=== PATIENT | female | born 1940 | race Caucasian/White ===

== ENCOUNTER 2017-09-19 05:03 | Emergency (ER) | payer MEDICARE, OTHER ==
[2017-09-19 06:25] LABS: BASO % 0.2 % (0.0-1.0); EOS # 0.1 10^3/uL (0.0-0.50); EOS % 1.1 % (0.0-3.0); HEMATOCRIT 29.8 % (36.0-47.0); HEMOGLOBIN 9.7 g/dl (12.0-15.5); IMMATURE GRANULOCYTE % 0.4 % (0-3.0); LYMPH # 1.2 10^3/uL (1.5-4.5); LYMPH % 12.5 % (24.0-44.0); MEAN CORPUSCULAR HEMOGLOBIN 29.7 pg (27.0-33.0); MEAN CORPUSCULAR HGB CONC 32.6 g/dl (32.0-36.5); MEAN CORPUSCULAR VOLUME 91.1 fl (80.0-96.0); MONO # 0.5 10^3/uL (0.0-0.8); MONO % 4.9 % (0.0-5.0); NEUTROPHILS # 7.6 10^3/uL (1.8-7.7); NEUTROPHILS % 80.9 % (36.0-66.0); PLATELET COUNT, AUTOMATED 217 10^3/uL (150-450); RED BLOOD COUNT 3.27 10^6/uL (4.00-5.40); RED CELL DISTRIBUTION WIDTH 13.9 % (11.5-14.5); WHITE BLOOD COUNT 9.4 10^3/uL (4.0-10.0)
[2017-09-19] MEDS: traMADol 50 MG TAB PO (06:25)
[2017-09-19 06:51] LABS: ANION GAP 7 MEQ/L (8-16); BLOOD UREA NITROGEN 24 MG/DL (7-18); CARBON DIOXIDE LEVEL 27 MEQ/L (21-32); CHLORIDE LEVEL 113 MEQ/L (98-107); CK-MB VALUE MASS 1.2 NG/ML (<3.6); CPK CREATINE PHOSPHOKINASE 110 U/L (26-192); CREATININE FOR GFR 1.22 MG/DL (0.55-1.30); GLOMERULAR FILTRATION RATE 45.7 (>39); GLUCOSE, FASTING 123 MG/DL (70-100); MB/CK RELATIVE INDEX 1.09 (< OR =4); SODIUM LEVEL 147 MEQ/L (136-145); TROPONIN I < 0.02 NG/ML (< 0.10)
[2017-09-19] MEDS: hydroCHLOROthiazide 25 MG TAB PO (06:57)
[2017-09-19] MEDS: CARVedilol 12.5 MG TAB PO (06:58)
[2017-09-19] MEDS: QUINAPRIL 20 MG TAB PO (07:34)
[2017-09-19] MEDS ORDERED: QUINAPRIL 20 MG TAB PO (09:00)
== END 2017-09-19 07:46 | disposition home or self-care (01) ==
LOC: M ED 05:03
DX: I10 Essential (primary) hypertension (principal); M54.9 Dorsalgia, unspecified; I25.10 Atherosclerotic heart disease of native coronary artery without angina pectoris; M79.7 Fibromyalgia; Z79.891 Long term (current) use of opiate analgesic; Z79.899 Other long term (current) drug therapy; Z88.8 Allergy status to other drugs, medicaments and biological substances
CPT/HCPCS: 71046

== ENCOUNTER → 2017-12-07 | Outpatient (CLI) | payer MEDICARE, OTHER | LOC: M WUC 11:11 | DX: M79.652 Pain in left thigh (principal) | CPT/HCPCS: 73552 ==

== ENCOUNTER → 2019-08-17 | Outpatient (CLI) | payer MEDICARE, OTHER ==
[~2019-08-17] MED LIST: ATOR40TA75 PO; CARV25TA PO; CLOP75TA2 PO; GLIM4TAB5 PO; HYDR200T3 PO; HYDR25TAB PO; QUIN20TA48 PO; RANI1SYP PO; TRAM50TA2 PO; VICT18IN SC
== END ==
LOC: M LABSMTC 13:58
PROVIDERS: ATTEND Family Medicine
DX: Z03.818 Encounter for observation for suspected exposure to other biological agents ruled out (principal)

== ENCOUNTER 2020-07-13 11:22 | Emergency (ER) | payer MEDICARE, OTHER ==
[~2020-07-13] VITALS: Ht 165.1 cm; Wt 95.5 kg
[~2020-07-13 11:22] MED LIST changes: +HYDR-3490 PO; -HYDR25TAB PO
--- NOTE | 2020-07-13 11:57 | REP ---
INDICATION: fall/thinners. COMPARISON: None. TECHNIQUE: Axial CT images with multiplanar reformations. FINDINGS: No acute bleed or acute large vessel territorial infarct. Ventricles, cisterns and sulci are within normal limits. No mass effect or midline shift. No abnormal fluid collections. Scattered ill-defined hypodensities seen throughout the white matter is most consistent with sequelae of chronic microvascular ischemic disease. Paranasal sinuses and mastoid air cells are clear. IMPRESSION: No acute findings. <Electronically signed by Beltran Puckett > 07/13/20 [id number]
--- NOTE | 2020-07-13 12:00 | REP ---
INDICATION: fall/thinners. COMPARISON: None. TECHNIQUE: Axial CT images with multiplanar reformations. FINDINGS: No fracture. Soft tissue swelling seen over the left forehead. Paranasal sinuses and mastoid air cells are clear. Nasal bones intact. IMPRESSION: No fracture. <Electronically signed by Beltran Puckett > 07/13/20 [id number]
--- NOTE | 2020-07-13 12:17 | REP ---
INDICATION: fall/thinners. COMPARISON: None. TECHNIQUE: Axial CT images with multiplanar reformations. FINDINGS: On the sagittal imaging, there is advanced degenerative change with anterior osteophytic spurring. There is an angulation in the Don toilet which raises concern for nondisplaced fracture. On the sagittal imaging, no significant canal stenosis. On the review of axial images, At C2-3 through C4-5 no significant canal or foraminal narrowing At C5-6 disc-osteophyte complex with at least moderate canal stenosis and [id number] bilateral foraminal narrowing. At C6-7 disc-osteophyte complex with at least moderate canal stenosis and [id number] bilateral foraminal narrowing. At C7-T1 no significant canal or foraminal narrowing. Prevertebral soft tissues within normal limits. IMPRESSION: 1. No definite fracture or malalignment. There is irregularity of the odontoid and angulation of the more superior aspect of the odontoid which raises concern for nondisplaced fracture (image 31 series 308). Clinical correlation suggested. 2. 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 <Electronically signed by Beltran Puckett > 07/13/20 [id number]
[2020-07-13] MEDS ORDERED: AMLO1TAB24 (12:30)
[2020-07-13] MEDS ORDERED: DULO1CAP5 (12:39)
[2020-07-13] MEDS ORDERED: LOSA50TA88 (12:39)
[2020-07-13] MEDS ORDERED: LABETALOL 100MG/20ML VIAL IV STA (13:01)
--- NOTE | 2020-07-13 13:33 | REP ---
INDICATION: thin cuts odontoid through c2 question fracture. COMPARISON: None. TECHNIQUE: Axial CT images with multiplanar reformations are focused on the odontoid. FINDINGS: Cystic change of the odontoid. The more superior aspect of the odontoid is slightly sclerotic. On the sagittal images there is irregularity of the odontoid cortex however on the coronal images no evidence of fracture. On the axial images, no evidence of fracture. There is however a fracture of the ring of C1 on the right, which is minimally displaced, see image 46 series 309. 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 Minimally displaced fracture of the ring of C1 on the right, image 46 series 309. Findings discussed with Ubaldo Juárez at the time of interpretation. <Electronically signed by Beltran Puckett > 07/13/20 [id number]
[2020-07-13 13:56] VITALS: BP 210/100
[2020-07-13 14:09] LABS: HEMATOCRIT 34.5 % (36.0-47.0); HEMOGLOBIN 10.5 g/dl (12.0-15.5); MEAN CORPUSCULAR HEMOGLOBIN 28.2 pg (27.0-33.0); MEAN CORPUSCULAR HGB CONC 30.4 g/dl (32.0-36.5); MEAN CORPUSCULAR VOLUME 92.7 fl (80.0-96.0); PLATELET COUNT, AUTOMATED 283 10^3/uL (150-450); RED BLOOD COUNT 3.72 10^6/uL (4.00-5.40); WHITE BLOOD COUNT 12.5 10^3/uL (4.0-10.0)
[2020-07-13 14:23] LABS: INR 0.98; PROTHROMBIN TIME 13.2 SECONDS (12.5-14.3)
[2020-07-13 14:32] LABS: CALCIUM LEVEL 9.2 MG/DL (8.8-10.2); CREATININE FOR GFR 0.99 MG/DL (0.55-1.30); GLOMERULAR FILTRATION RATE 57.8 (>39); POTASSIUM SERUM 4.7 MEQ/L (3.5-5.1)
[2020-07-13 15:14] LABS: RSV AMPLIFICATION NEGATIVE (NEGATIVE)
[2020-07-13 15:46] VITALS: BP 190/80
== END 2020-07-13 16:07 | disposition short-term general hospital (02) ==
LOC: M ED 11:22
DX: S12.000A Unspecified displaced fracture of first cervical vertebra, initial encounter for closed fracture (principal); S12.100A Unspecified displaced fracture of second cervical vertebra, initial encounter for closed fracture; W01.10XA Fall on same level from slipping, tripping and stumbling with subsequent striking against unspecified object, initial encounter; Y92.410 Unspecified street and highway as the place of occurrence of the external cause; Y93.9 Activity, unspecified; Y99.9 Unspecified external cause status; M25.78 Osteophyte, vertebrae; M48.02 Spinal stenosis, cervical region; I51.9 Heart disease, unspecified; I10 Essential (primary) hypertension; Z79.899 Other long term (current) drug therapy; Z88.8 Allergy status to other drugs, medicaments and biological substances

== ENCOUNTER → 2020-10-04 | Outpatient (REF) | payer MEDICARE, OTHER ==
[~2020-10-04] MED LIST changes: +AMLO1TAB24; +DULO1CAP5; +LOSA50TA88
== END ==
LOC: EEVIPCON 15:52 → M WUC 15:52
PROVIDERS: ATTEND Nurse Practitioner Family
DX: R30.0 Dysuria (principal)

== ENCOUNTER → 2021-09-28 | Outpatient (CLI) | payer MEDICARE, OTHER ==
[~2021-09-28] MED LIST changes: +LOSA50TA28; -LOSA50TA88
== END ==
LOC: M WHC 15:12
DX: Z12.31 Encounter for screening mammogram for malignant neoplasm of breast (principal); Z80.3 Family history of malignant neoplasm of breast; Z80.41 Family history of malignant neoplasm of ovary

== ENCOUNTER → 2022-09-20 | Outpatient (CLI) | payer MEDICARE, OTHER ==
[~2022-09-20] MED LIST changes: -HYDR200T3 PO; +HYDR200T46 PO
== END ==
LOC: M WUC 13:38
PROVIDERS: ATTEND Nurse Practitioner Family
DX: M79.675 Pain in left toe(s) (principal); M10.00 Idiopathic gout, unspecified site

== ENCOUNTER 2023-08-05 14:45 | Inpatient (IN) | payer MEDICARE, OTHER ==
[~2023-08-05] VITALS: Ht 165.1 cm; Wt 102.5 kg
[2023-08-05] MEDS ORDERED: HYDR-3490 (14:54)
[2023-08-05] MEDS ORDERED: POTA1TAB23 (14:54)
[2023-08-05] MEDS ORDERED: HYDR100T (14:54)
[2023-08-05 16:04] LABS: CK-MB VALUE MASS 1.5 NG/ML (<3.6)
[2023-08-05 16:06] LABS: MB/CK RELATIVE INDEX 1.97 (< OR =4)
[2023-08-05 16:07] LABS: BILIRUBIN,DIRECT 0.1 MG/DL (<0.4); BILIRUBIN,TOTAL 0.3 MG/DL (0.3-1.2); CALCIUM LEVEL 9.2 MG/DL (8.3-10.6); CREATININE FOR GFR 1.05 MG/DL (0.55-1.30); GLOMERULAR FILTRATION RATE 53.5 (>32); POTASSIUM SERUM 4.9 MMOL/L (3.5-5.1); TOTAL PROTEIN 6.4 G/DL (5.7-8.2)
[2023-08-05 16:08] LABS: THYROID STIMULATING HORMONE 2.874 uIU/ML (0.55-4.78)
[2023-08-05 16:31] LABS: VENOUS BASE EXCESS -1.9 (-2.0-2.0); VENOUS HCO3 24.4 MMOL/L (23.0-27.0); VENOUS O2 SATURATION 88.6 % (60.0-80.0); VENOUS PARTIAL PRESSURE O2 60.1 mmHg (30.0-50.0); VENOUS PH 7.315 UNITS (7.330-7.430); VENOUS STANDARD HCO3 22.7 MMOL/L; VENOUS TOTAL CO2 25.9 MMOL/L (24.0-28.0)
[2023-08-05 16:33] LABS: BASO # 0.1 10^3/uL (0.0-0.2); BASO % 0.5 % (0.0-1.0); EOS # 0.2 10^3/uL (0.0-0.5); EOS % 1.7 % (0.0-3.0); HEMATOCRIT 27.8 % (36.0-47.0); HEMOGLOBIN 8.3 g/dl (12.0-15.5); LYMPH # 0.7 10^3/uL (1.5-5.0); LYMPH % 7.1 % (24.0-44.0); MEAN CORPUSCULAR HEMOGLOBIN 28.2 pg (27.0-33.0); MEAN CORPUSCULAR HGB CONC 29.9 g/dl (32.0-36.5); MEAN CORPUSCULAR VOLUME 94.6 fl (80.0-96.0); MONO # 0.9 10^3/uL (0.0-0.8); MONO % 8.8 % (2.0-8.0); NEUTROPHILS # 8.1 10^3/uL (1.5-8.5); NEUTROPHILS % 81.5 % (36.0-66.0); PLATELET COUNT, AUTOMATED 289 10^3/uL (150-450); RED BLOOD COUNT 2.94 10^6/uL (4.00-5.40); WHITE BLOOD COUNT 9.9 10^3/uL (4.0-10.0)
[2023-08-05] MEDS ORDERED: ISOVUE-370 76% 100ML VIAL As Ordered ONE (18:03)
[2023-08-05 18:48] LABS: CK-MB VALUE MASS 1.6 NG/ML (<3.6)
[2023-08-05 18:50] LABS: MB/CK RELATIVE INDEX 2.05 (< OR =4)
[2023-08-05 19:28] VITALS: O2SAT 94
[2023-08-05 20:17] LABS: PROCALCITONIN 0.04 ng/ml
[2023-08-05] MEDS: HYDROXYCHLOROQUINE 200 MG TAB PO SCH (21:00)
[2023-08-05] MEDS: INSULIN LISPRO (NovoLOG) PER UNIT SC SCH (21:00)
[2023-08-05] MEDS: cefTRIAXone SOD 1 GM in D5W MINI-BAG PLUS 50 ML IV ONE (21:09)
[2023-08-05] MEDS ORDERED: LOSA100T46 PO (21:35)
[2023-08-05] MEDS ORDERED: HYDR-3490 PO (21:35)
[2023-08-05] MEDS ORDERED: HYDR100T26 PO (21:35)
[2023-08-05] MEDS ORDERED: POTA-150 PO (21:35)
[2023-08-05] MEDS ORDERED: AMLO1TAB25 PO (21:35)
[2023-08-05] MEDS ORDERED: DULO30CA9 PO (21:37)
[2023-08-05] MEDS ORDERED: ACET650T61 PO ×2 (21:37)
[2023-08-05] MEDS ORDERED: HOME MED LIST COMPLETE! XX SCH (21:40)
[2023-08-05] MEDS: DOXYCYCLINE HYCLATE 100 MG in D5W MINI-BAG PLUS 100 ML IV ONE (21:46)
[2023-08-05] MEDS ORDERED: GLUCAGON INJ 1MG VIAL SC PRN (22:15)
[2023-08-05] MEDS ORDERED: DEXTROSE 50% 50ML SYRINGE IV PRN (22:15)
[2023-08-05] MEDS ORDERED: GLUCOSE 4 GM CHEW PO PRN (22:15)
[2023-08-05] MEDS: LOSARTAN 50MG TABLET PO SCH (22:34)
[2023-08-05] MEDS: CARVedilol 12.5 MG TAB PO SCH (22:35)
[2023-08-05 23:06] VITALS: BP 179/74; TEMP 97; O2SAT 91
[2023-08-05] MEDS: FUROSEMIDE 20MG/2ML VIAL IV ONE (23:30)
[2023-08-06] VITALS (7 sets, daily range): BP systolic 131–178; BP diastolic 54–74; TEMP 97–98; O2SAT 94–96
[2023-08-06] MEDS: ALBUTEROL SULFATE 2.5MG/0.5ML INH NEB SOLN INH SCH (01:29)
[2023-08-06 05:29] LABS: HEMATOCRIT 26.1 % (36.0-47.0); HEMOGLOBIN 7.9 g/dl (12.0-15.5); MEAN CORPUSCULAR HEMOGLOBIN 28.5 pg (27.0-33.0); MEAN CORPUSCULAR HGB CONC 30.3 g/dl (32.0-36.5); MEAN CORPUSCULAR VOLUME 94.2 fl (80.0-96.0); PLATELET COUNT, AUTOMATED 270 10^3/uL (150-450); RED BLOOD COUNT 2.77 10^6/uL (4.00-5.40); WHITE BLOOD COUNT 9.5 10^3/uL (4.0-10.0)
[2023-08-06] MEDS: HEPARIN SOD (PORCINE) 5000UNITS/ML 1ML VIAL/SYRINGE SC SCH (05:41)
[2023-08-06 05:52] LABS: CALCIUM LEVEL 8.9 MG/DL (8.3-10.6); CREATININE FOR GFR 1.12 MG/DL (0.55-1.30); GLOMERULAR FILTRATION RATE 49.7 (>32); POTASSIUM SERUM 4.6 MMOL/L (3.5-5.1)
[2023-08-06 08:08] LABS: C REACTIVE PROTEIN QUANTITATIV 3.9 MG/DL (<1.0)
[2023-08-06] MEDS: ATORVASTATIN 20 MG TAB PO SCH (08:17)
[2023-08-06] MEDS: DULoxetine 30MG CAPSULE (CYMBALTA) PO SCH (08:18)
[2023-08-06] MEDS: INSULIN LISPRO (NovoLOG) PER UNIT SC SCH (08:18)
[2023-08-06] MEDS: DOXYCYCLINE HYCLATE 100MG TABLET PO SCH (08:18)
[2023-08-06] MEDS: CLOPIDOGREL 75 MG TAB PO SCH (08:18)
[2023-08-06] MEDS: guaiFENesin 200 MG TAB PO SCH (14:53)
[2023-08-06 16:10] LABS: ERYTHROCYTE SEDIMENTATION RATE 55 mm/hr (0-30)
[2023-08-06] MEDS: cefTRIAXone SOD 1 GM in D5W MINI-BAG PLUS 50 ML IV SCH (20:20)
[2023-08-06] MEDS: ACETAMINOPHEN TAB 650MG DOSE (2X325MG) PO PRN (20:21)
[2023-08-07] VITALS (7 sets, daily range): BP systolic 128–149; BP diastolic 58–78; TEMP 97.4–98; O2SAT 80–97
[2023-08-07 05:13] LABS: BASO % 0.4 % (0.0-1.0); EOS # 0.2 10^3/uL (0.0-0.5); EOS % 2.5 % (0.0-3.0); HEMATOCRIT 24.4 % (36.0-47.0); HEMOGLOBIN 7.6 g/dl (12.0-15.5); LYMPH # 1.5 10^3/uL (1.5-5.0); LYMPH % 18.6 % (24.0-44.0); MEAN CORPUSCULAR HEMOGLOBIN 29.1 pg (27.0-33.0); MEAN CORPUSCULAR HGB CONC 31.1 g/dl (32.0-36.5); MEAN CORPUSCULAR VOLUME 93.5 fl (80.0-96.0); MONO # 1.1 10^3/uL (0.0-0.8); MONO % 13.1 % (2.0-8.0); NEUTROPHILS # 5.3 10^3/uL (1.5-8.5); NEUTROPHILS % 64.8 % (36.0-66.0); PLATELET COUNT, AUTOMATED 258 10^3/uL (150-450); RED BLOOD COUNT 2.61 10^6/uL (4.00-5.40); WHITE BLOOD COUNT 8.1 10^3/uL (4.0-10.0)
[2023-08-07 05:27] LABS: C REACTIVE PROTEIN QUANTITATIV 3.3 MG/DL (<1.0)
[2023-08-07 05:28] LABS: CALCIUM LEVEL 8.3 MG/DL (8.3-10.6); CREATININE FOR GFR 1.38 MG/DL (0.55-1.30); GLOMERULAR FILTRATION RATE 39.1 (>32); MAGNESIUM LEVEL 1.9 MG/DL (1.8-2.4); POTASSIUM SERUM 4.4 MMOL/L (3.5-5.1)
[2023-08-07] MEDS: NS 1,000 ML IV SCH (08:29)
[2023-08-07] MEDS: FLUCONAZOLE 100 MG TAB PO SCH (12:57)
[2023-08-07 14:52] LABS: CALCIUM LEVEL 8.9 MG/DL (8.3-10.6); CREATININE FOR GFR 1.22 MG/DL (0.55-1.30); POTASSIUM SERUM 4.7 MMOL/L (3.5-5.1)
[2023-08-08 00:25] VITALS: BP 156/67; TEMP 97.3; O2SAT 93
[2023-08-08 04:03] VITALS: BP 151/63; TEMP 97.3; O2SAT 91; O2SAT 94
[2023-08-08 06:26] LABS: BASO # 0.1 10^3/uL (0.0-0.2); BASO % 0.5 % (0.0-1.0); EOS # 0.3 10^3/uL (0.0-0.5); EOS % 2.7 % (0.0-3.0); HEMATOCRIT 25.1 % (36.0-47.0); HEMOGLOBIN 7.7 g/dl (12.0-15.5); LYMPH # 1.3 10^3/uL (1.5-5.0); LYMPH % 13.1 % (24.0-44.0); MEAN CORPUSCULAR HEMOGLOBIN 28.4 pg (27.0-33.0); MEAN CORPUSCULAR HGB CONC 30.7 g/dl (32.0-36.5); MEAN CORPUSCULAR VOLUME 92.6 fl (80.0-96.0); MONO % 9.9 % (2.0-8.0); NEUTROPHILS # 7.3 10^3/uL (1.5-8.5); NEUTROPHILS % 73.4 % (36.0-66.0); PLATELET COUNT, AUTOMATED 256 10^3/uL (150-450); RED BLOOD COUNT 2.71 10^6/uL (4.00-5.40); WHITE BLOOD COUNT 9.9 10^3/uL (4.0-10.0)
[2023-08-08 06:58] LABS: C REACTIVE PROTEIN QUANTITATIV 2.5 MG/DL (<1.0)
[2023-08-08 07:00] LABS: CALCIUM LEVEL 8.6 MG/DL (8.3-10.6); CREATININE FOR GFR 1.07 MG/DL (0.55-1.30); GLOMERULAR FILTRATION RATE 52.4 (>32); MAGNESIUM LEVEL 1.8 MG/DL (1.8-2.4); POTASSIUM SERUM 4.6 MMOL/L (3.5-5.1)
[2023-08-08 07:39] VITALS: BP 154/64; TEMP 97.6; O2SAT 95
[2023-08-08] MEDS: ASPIRIN 81MG ENTERIC TABLET PO SCH (08:31)
[2023-08-08 08:44] VITALS: BP 165/80
[2023-08-08] MEDS: FUROSEMIDE 40 MG TAB PO SCH (08:44)
[2023-08-08] MEDS: LOSARTAN 50MG TABLET PO SCH (08:44)
[2023-08-08] MEDS ORDERED: FLUC100T3 PO (10:07)
[2023-08-08] MEDS ORDERED: ASPI81TAEC PO (10:14)
[2023-08-08] MEDS ORDERED: CEFD1CAP9 PO (10:14)
[2023-08-08] MEDS ORDERED: DOXY100T PO (10:14)
[2023-08-08] MEDS ORDERED: FURO40TA2 PO (10:14)
[2023-08-08] MEDS: CEFDINIR 300 MG CAP (OMNICEF) PO STA (10:17)
[2023-08-12 08:58] LABS: FUNGITELL, SERUM <31 pg/mL (<60)
== END 2023-08-08 12:00 | disposition home or self-care (01) | DRG 194 ==
LOC: M ED 14:45 → M ED INP 22:00 → EEVIPCON 22:00 → M PCU 22:58
PROVIDERS: ADMIT Family Medicine; ATTEND Internal Medicine
DX: J18.9 Pneumonia, unspecified organism (principal); J90 Pleural effusion, not elsewhere classified; I10 Essential (primary) hypertension; I27.20 Pulmonary hypertension, unspecified; M06.9 Rheumatoid arthritis, unspecified; E11.40 Type 2 diabetes mellitus with diabetic neuropathy, unspecified; D63.8 Anemia in other chronic diseases classified elsewhere; E78.5 Hyperlipidemia, unspecified; I25.10 Atherosclerotic heart disease of native coronary artery without angina pectoris; J45.909 Unspecified asthma, uncomplicated; Z95.2 Presence of prosthetic heart valve; Z88.8 Allergy status to other drugs, medicaments and biological substances; Z79.899 Other long term (current) drug therapy; Z79.82 Long term (current) use of aspirin; Z98.41 Cataract extraction status, right eye; Z98.42 Cataract extraction status, left eye; Z96.611 Presence of right artificial shoulder joint; Z90.721 Acquired absence of ovaries, unilateral

== ENCOUNTER → 2023-08-13 | Outpatient (CLI) | payer MEDICARE, OTHER ==
[~2023-08-13] MED LIST changes: +ACET650T61 PO; +AMLO1TAB25 PO; +ASPI81TAEC PO; +CEFD1CAP9 PO; +DOXY100T PO; +DULO30CA9 PO; +FLUC100T3 PO; +FURO40TA2 PO; +HYDR-3490; +HYDR100T; +HYDR100T26 PO; +LOSA100T46 PO; +POTA-150 PO; +POTA1TAB23
[2023-08-13 12:10] LABS: HEMOGLOBIN A1c 6.8 % (4.0-6.0)
[2023-08-13 12:21] LABS: ALBUMIN 2.8 G/DL (3.2-5.2); BILIRUBIN,TOTAL 0.2 MG/DL (0.3-1.2); CALCIUM LEVEL 8.6 MG/DL (8.3-10.6); CHOLESTEROL RISK RATIO 2.43 (<5); CREATININE FOR GFR 1.31 MG/DL (0.55-1.30); GLOMERULAR FILTRATION RATE 41.5 (>32); HDL CHOLESTEROL 42.7 MG/DL (>40); LDL CHOLESTEROL 46.1 MG/DL (<100); NON-HDL-C 61.3 MG/DL; POTASSIUM SERUM 4.6 MMOL/L (3.5-5.1); TOTAL PROTEIN 5.9 G/DL (5.7-8.2)
== END ==
LOC: M EKG 11:09
PROVIDERS: ATTEND Student in an Organized Health Care Education/Training Program
DX: Z09 Encounter for follow-up examination after completed treatment for conditions other than malignant neoplasm (principal); Z79.899 Other long term (current) drug therapy

== ENCOUNTER 2023-08-31 13:17 | Emergency (ER) | payer MEDICARE, OTHER ==
[~2023-08-31] VITALS: Ht 165.1 cm; Wt 103.2 kg
[2023-08-31 16:00] VITALS: BP 155/82; TEMP 97.2; O2SAT 95
== END 2023-08-31 16:03 | disposition home or self-care (01) ==
LOC: M ED 13:17
DX: S00.83XA Contusion of other part of head, initial encounter (principal); W01.198A Fall on same level from slipping, tripping and stumbling with subsequent striking against other object, initial encounter; Y92.009 Unspecified place in unspecified non-institutional (private) residence as the place of occurrence of the external cause; Y93.9 Activity, unspecified; Y99.9 Unspecified external cause status; M47.892 Other spondylosis, cervical region; E11.9 Type 2 diabetes mellitus without complications; I10 Essential (primary) hypertension; I25.10 Atherosclerotic heart disease of native coronary artery without angina pectoris; E78.00 Pure hypercholesterolemia, unspecified; J45.909 Unspecified asthma, uncomplicated; M81.0 Age-related osteoporosis without current pathological fracture; Z87.01 Personal history of pneumonia (recurrent); Z95.5 Presence of coronary angioplasty implant and graft; Z79.84 Long term (current) use of oral hypoglycemic drugs; Z79.899 Other long term (current) drug therapy; Z88.8 Allergy status to other drugs, medicaments and biological substances

== ENCOUNTER → 2023-09-09 | Outpatient (CLI) | payer MEDICARE, OTHER ==
[2023-09-09 10:48] LABS: BASO % 0.3 % (0.0-1.0); EOS # 0.3 10^3/uL (0.0-0.5); EOS % 2.8 % (0.0-3.0); HEMATOCRIT 27.7 % (36.0-47.0); HEMOGLOBIN 8.1 g/dl (12.0-15.5); LYMPH # 0.9 10^3/uL (1.5-5.0); MEAN CORPUSCULAR HEMOGLOBIN 26.4 pg (27.0-33.0); MEAN CORPUSCULAR HGB CONC 28.9 g/dl (32.0-36.5); MEAN CORPUSCULAR VOLUME 91.2 fl (80.0-96.0); MONO # 0.9 10^3/uL (0.0-0.8); MONO % 8.8 % (2.0-8.0); NEUTROPHILS # 7.7 10^3/uL (1.5-8.5); NEUTROPHILS % 78.7 % (36.0-66.0); PLATELET COUNT, AUTOMATED 322 10^3/uL (150-450); RED BLOOD COUNT 3.07 10^6/uL (4.00-5.40); WHITE BLOOD COUNT 9.8 10^3/uL (4.0-10.0)
[2023-09-09 11:19] LABS: PERCENT SATURATION 9.2 % (13.2-45.0)
== END ==
LOC: M PLALAB 08:42
PROVIDERS: ATTEND Student in an Organized Health Care Education/Training Program
DX: D64.9 Anemia, unspecified (principal)

== ENCOUNTER 2023-09-25 03:27 | Emergency (ER) | payer MEDICARE, OTHER ==
[~2023-09-25] VITALS: Ht 165.1 cm; Wt 103.2 kg
[2023-09-25 04:08] LABS: VENOUS BASE EXCESS -2.9 (-2.0-2.0); VENOUS HCO3 22.2 MMOL/L (23.0-27.0); VENOUS O2 SATURATION 88.4 % (60.0-80.0); VENOUS PARTIAL PRESSURE CO2 39.4 mmHg (38.0-50.0); VENOUS PARTIAL PRESSURE O2 57.4 mmHg (30.0-50.0); VENOUS PH 7.368 UNITS (7.330-7.430); VENOUS STANDARD HCO3 21.9 MMOL/L; VENOUS TOTAL CO2 23.4 MMOL/L (24.0-28.0)
[2023-09-25 04:12] LABS: BASO # 0.1 10^3/uL (0.0-0.2); BASO % 0.6 % (0.0-1.0); EOS # 0.3 10^3/uL (0.0-0.5); EOS % 2.9 % (0.0-3.0); HEMATOCRIT 29.4 % (36.0-47.0); HEMOGLOBIN 8.7 g/dl (12.0-15.5); LYMPH # 0.9 10^3/uL (1.5-5.0); LYMPH % 9.4 % (24.0-44.0); MEAN CORPUSCULAR HEMOGLOBIN 26.5 pg (27.0-33.0); MEAN CORPUSCULAR HGB CONC 29.6 g/dl (32.0-36.5); MEAN CORPUSCULAR VOLUME 89.6 fl (80.0-96.0); MONO # 0.8 10^3/uL (0.0-0.8); MONO % 8.5 % (2.0-8.0); NEUTROPHILS # 7.6 10^3/uL (1.5-8.5); NEUTROPHILS % 78.4 % (36.0-66.0); PLATELET COUNT, AUTOMATED 299 10^3/uL (150-450); RED BLOOD COUNT 3.28 10^6/uL (4.00-5.40); WHITE BLOOD COUNT 9.7 10^3/uL (4.0-10.0)
[2023-09-25] MEDS: IPRATROPIUM 0.5MG/ALBUTEROL 2.5MG INH SOL UD 3ML (DUONEB) NEB ONE (04:13)
[2023-09-25 04:36] LABS: CK-MB VALUE MASS 1.5 NG/ML (<3.6)
[2023-09-25 04:39] LABS: ALBUMIN 3.2 G/DL (3.2-5.2); BILIRUBIN,DIRECT 0.1 MG/DL (<0.4); BILIRUBIN,TOTAL 0.4 MG/DL (0.3-1.2); CALCIUM LEVEL 9.2 MG/DL (8.3-10.6); CREATININE FOR GFR 1.14 MG/DL (0.55-1.30); GLOMERULAR FILTRATION RATE 48.7 (>32); POTASSIUM SERUM 5.4 MMOL/L (3.5-5.1); TOTAL PROTEIN 6.6 G/DL (5.7-8.2)
[2023-09-25 04:42] LABS: MB/CK RELATIVE INDEX 1.92 (< OR =4)
[2023-09-25] MEDS: FUROSEMIDE 100MG/10ML VIAL IV ONE (05:08)
[2023-09-25] MEDS: **hydrALAZINE** 50 MG TAB PO ONE (06:31)
[2023-09-25] MEDS: CARVedilol 12.5 MG TAB PO ONE (06:32)
[2023-09-25 07:56] LABS: CK-MB VALUE MASS 2.3 NG/ML (<3.6)
[2023-09-25 07:57] LABS: MB/CK RELATIVE INDEX 3.77 (< OR =4)
[2023-09-25] MEDS ORDERED: FURO40TA2 PO (07:59)
[2023-09-25 08:00] VITALS: BP 159/68
[2023-09-25 08:35] VITALS: O2SAT 97
[2023-09-25 08:36] VITALS: O2SAT 90
[2023-09-25 08:55] VITALS: TEMP 96.6
== END 2023-09-25 08:56 | disposition home or self-care (01) ==
LOC: M ED 03:27
DX: I50.9 Heart failure, unspecified (principal); I25.10 Atherosclerotic heart disease of native coronary artery without angina pectoris; I25.2 Old myocardial infarction; I11.0 Hypertensive heart disease with heart failure; E78.5 Hyperlipidemia, unspecified; Z95.5 Presence of coronary angioplasty implant and graft; Z79.899 Other long term (current) drug therapy; Z88.8 Allergy status to other drugs, medicaments and biological substances
CPT/HCPCS: 71045; 80048; 80076; 82550; 82553; 82803; 83880; 84484; 85025; 87486; 87581; 87633; 87798; 93005; 93041; 94640; 94760; 96374; 99285; J1940

== ENCOUNTER → 2023-09-30 | Outpatient (CLI) | payer MEDICARE, OTHER | LOC: M PLAIMG 10:21 | PROVIDERS: ATTEND Internal Medicine Pulmonary Disease | DX: J90 Pleural effusion, not elsewhere classified (principal); I51.7 Cardiomegaly; R91.8 Other nonspecific abnormal finding of lung field ==

== ENCOUNTER → 2023-10-25 | Outpatient (CLI) | payer MEDICARE, OTHER ==
[2023-10-25 10:18] LABS: BASO % 0.4 % (0.0-1.0); EOS # 0.3 10^3/uL (0.0-0.5); EOS % 2.6 % (0.0-3.0); HEMATOCRIT 28.2 % (36.0-47.0); HEMOGLOBIN 8.1 g/dl (12.0-15.5); LYMPH # 0.8 10^3/uL (1.5-5.0); LYMPH % 7.2 % (24.0-44.0); MEAN CORPUSCULAR HEMOGLOBIN 24.8 pg (27.0-33.0); MEAN CORPUSCULAR HGB CONC 28.7 g/dl (32.0-36.5); MEAN CORPUSCULAR VOLUME 86.2 fl (80.0-96.0); MONO # 1.1 10^3/uL (0.0-0.8); MONO % 9.7 % (2.0-8.0); NEUTROPHILS # 8.7 10^3/uL (1.5-8.5); NEUTROPHILS % 79.6 % (36.0-66.0); PLATELET COUNT, AUTOMATED 286 10^3/uL (150-450); RED BLOOD COUNT 3.27 10^6/uL (4.00-5.40)
[2023-10-25 10:35] LABS: C REACTIVE PROTEIN QUANTITATIV 10.5 MG/DL (<1.0)
[2023-10-25 10:36] LABS: CREATININE, URINE 72.4 MG/DL; MAU/CREAT RATIO 17.9 MCG/MG (0.0-30.0)
[2023-10-25 10:37] LABS: BILIRUBIN,TOTAL 0.5 MG/DL (0.3-1.2); CALCIUM LEVEL 8.6 MG/DL (8.3-10.6); CHOLESTEROL RISK RATIO 2.63 (<5); CREATININE FOR GFR 1.17 MG/DL (0.55-1.30); GLOMERULAR FILTRATION RATE 47.3 (>32); HDL CHOLESTEROL 42.1 MG/DL (>40); LDL CHOLESTEROL 55.5 MG/DL (<100); NON-HDL-C 68.9 MG/DL; POTASSIUM SERUM 4.2 MMOL/L (3.5-5.1); TOTAL PROTEIN 6.4 G/DL (5.7-8.2)
[2023-10-25 10:38] LABS: ERYTHROCYTE SEDIMENTATION RATE 57 mm/hr (0-30)
[2023-10-25 10:39] LABS: RHEUMATOID FACTOR QUANT 32.9 IU/ML (<14)
[2023-10-28 11:27] LABS: SSA SJOGRENS A <1.0 NEG AI (<1.0 NEG); SSB SJOGRENS B <1.0 NEG AI (<1.0 NEG)
[2023-10-29 02:07] LABS: CYCLIC CITRULLINATED PEPTIDE > 250 UNITS (<20)
[2023-10-29 13:37] LABS: ANA PATTERN Nuclear, Homogeneous (NEGATIVE); ANA SCREEN, IFA POSITIVE (NEGATIVE); ANA TITER > OR = 1:1280 titer (<1:40)
== END ==
LOC: M PLALAB 08:44
PROVIDERS: ATTEND Physician Assistant
DX: E11.40 Type 2 diabetes mellitus with diabetic neuropathy, unspecified (principal)

== ENCOUNTER → 2024-02-04 | Outpatient (REF) | payer MEDICARE, OTHER | LOC: M SFHCPLAZ 11:01 | PROVIDERS: ATTEND Internal Medicine Hematology | DX: D50.0 Iron deficiency anemia secondary to blood loss (chronic) (principal) ==

== ENCOUNTER → 2024-02-06 | Outpatient (CLI) | payer MEDICARE, OTHER ==
[2024-02-06 10:34] LABS: BASO % 0.4 % (0.0-1.0); EOS # 0.3 10^3/uL (0.0-0.5); EOS % 3.6 % (0.0-3.0); HEMATOCRIT 32.4 % (36.0-47.0); HEMOGLOBIN 9.3 g/dl (12.0-15.5); LYMPH # 1.2 10^3/uL (1.5-5.0); LYMPH % 12.8 % (24.0-44.0); MEAN CORPUSCULAR HEMOGLOBIN 24.7 pg (27.0-33.0); MEAN CORPUSCULAR HGB CONC 28.7 g/dl (32.0-36.5); MEAN CORPUSCULAR VOLUME 85.9 fl (80.0-96.0); MONO # 0.7 10^3/uL (0.0-0.8); MONO % 7.9 % (2.0-8.0); PLATELET COUNT, AUTOMATED 327 10^3/uL (150-450); RED BLOOD COUNT 3.77 10^6/uL (4.00-5.40); WHITE BLOOD COUNT 9.3 10^3/uL (4.0-10.0)
[2024-02-06 11:11] LABS: BILIRUBIN,DIRECT 0.1 MG/DL (<0.4); BILIRUBIN,TOTAL 0.4 MG/DL (0.3-1.2); PERCENT SATURATION 9.3 % (13.2-45.0)
[2024-02-06 11:12] LABS: FERRITIN 45.8 NG/ML (7.3-270.7); THYROID STIMULATING HORMONE 2.197 uIU/ML (0.55-4.78)
[2024-02-06 11:13] LABS: FREE T4 1.12 NG/DL (0.89-1.76)
== END ==
LOC: M WUC 08:38
PROVIDERS: ATTEND Internal Medicine Hematology
DX: D50.0 Iron deficiency anemia secondary to blood loss (chronic) (principal); E11.9 Type 2 diabetes mellitus without complications; I11.0 Hypertensive heart disease with heart failure; M06.9 Rheumatoid arthritis, unspecified; I50.32 Chronic diastolic (congestive) heart failure; I25.10 Atherosclerotic heart disease of native coronary artery without angina pectoris; E78.5 Hyperlipidemia, unspecified

== ENCOUNTER 2024-03-26 12:04 | Outpatient (CLI) | payer MEDICARE, OTHER ==
[~2024-03-26] VITALS: Ht 165.1 cm; Wt 97.7 kg
[~2024-03-26 12:04] MED LIST changes: +ALBUTEROL SULFATE 2.5MG/0.5ML INH NEB SOLN INH PRN; +EPINEPHrine INJ 1 MG/ML 1ML AMP IM PRN; +NS (Normal Saline) 0.9% 1,000 ML IV SCH; +diphenhydrAMINE 50MG/ML VIAL IV PRN; +methylPREDNISolone 125MG 2ML VIAL IV PRN
[2024-03-26 12:20] VITALS: BP 135/66; O2SAT 97
[2024-03-26] MEDS: IRON SUCROSE 300 MG in NS 250 ML IV ONE (12:50)
[2024-03-26 15:00] VITALS: BP 178/76; O2SAT 97
== END 2024-03-26 15:50 ==
LOC: M INFU 12:04
PROVIDERS: ATTEND Internal Medicine Hematology
DX: D50.0 Iron deficiency anemia secondary to blood loss (chronic) (principal); Z88.8 Allergy status to other drugs, medicaments and biological substances
CPT/HCPCS: 96365; J1756

== ENCOUNTER 2024-04-09 13:25 | Outpatient (CLI) | payer MEDICARE, OTHER ==
[~2024-04-09] VITALS: Ht 165.1 cm; Wt 91.8 kg
[2024-04-09 13:25] VITALS: BP 138/65; O2SAT 99
[~2024-04-09 13:25] MED LIST changes: -NS (Normal Saline) 0.9% 1,000 ML IV SCH
[2024-04-09] MEDS: IRON SUCROSE 300 MG in NS 250 ML OVER 90 MIN. IV ONE (13:32)
[2024-04-09 15:14] VITALS: BP 152/65; O2SAT 97
== END 2024-04-09 16:20 ==
LOC: M INFU 13:25
PROVIDERS: ATTEND Internal Medicine Hematology
DX: D50.0 Iron deficiency anemia secondary to blood loss (chronic) (principal); Z88.8 Allergy status to other drugs, medicaments and biological substances
CPT/HCPCS: 96365; 96366; J1756

== ENCOUNTER 2024-04-16 13:00 | Outpatient (CLI) | payer MEDICARE, OTHER ==
[~2024-04-16] VITALS: Ht 165.1 cm; Wt 90.9 kg
[2024-04-16 13:00] VITALS: BP 135/59; O2SAT 99
[~2024-04-16 13:00] MED LIST changes: +NS (Normal Saline) 0.9% 1,000 ML IV SCH
[2024-04-16] MEDS: IRON SUCROSE 300 MG in NS 250 ML OVER 90 MIN. IV ONE (13:35)
[2024-04-16 15:05] VITALS: BP 141/63; O2SAT 94
== END 2024-04-16 15:10 ==
LOC: M INFU 13:00
PROVIDERS: ATTEND Internal Medicine Hematology
DX: D50.9 Iron deficiency anemia, unspecified (principal); Z88.8 Allergy status to other drugs, medicaments and biological substances
CPT/HCPCS: 96365; J1756

== ENCOUNTER → 2024-04-24 | Outpatient (REF) | payer MEDICARE, OTHER ==
[~2024-04-24] MED LIST changes: -ALBUTEROL SULFATE 2.5MG/0.5ML INH NEB SOLN INH PRN; -EPINEPHrine INJ 1 MG/ML 1ML AMP IM PRN; -NS (Normal Saline) 0.9% 1,000 ML IV SCH; -diphenhydrAMINE 50MG/ML VIAL IV PRN; -methylPREDNISolone 125MG 2ML VIAL IV PRN
== END ==
LOC: M SFHCRHEU 12:53
PROVIDERS: ATTEND Internal Medicine Rheumatology
DX: M05.79 Rheumatoid arthritis with rheumatoid factor of multiple sites without organ or systems involvement (principal); Z79.899 Other long term (current) drug therapy; M15.9 Polyosteoarthritis, unspecified

== ENCOUNTER → 2024-04-28 | Outpatient (CLI) | payer MEDICARE, OTHER ==
[~2024-04-28] MED LIST changes: +FAMO10TA50 PO; +FERR325T19; +LEVE750T5; +MECL-86 PO
[2024-04-28 12:37] LABS: BASO # 0.1 10^3/uL (0.0-0.2); BASO % 0.5 % (0.0-1.0); EOS # 0.7 10^3/uL (0.0-0.5); EOS % 7.5 % (0.0-3.0); HEMATOCRIT 30.7 % (36.0-47.0); HEMOGLOBIN 9.5 g/dl (12.0-15.5); LYMPH # 1.4 10^3/uL (1.5-5.0); LYMPH % 14.5 % (24.0-44.0); MEAN CORPUSCULAR HEMOGLOBIN 29.1 pg (27.0-33.0); MEAN CORPUSCULAR HGB CONC 30.9 g/dl (32.0-36.5); MEAN CORPUSCULAR VOLUME 93.9 fl (80.0-96.0); MONO # 0.6 10^3/uL (0.0-0.8); MONO % 6.6 % (2.0-8.0); NEUTROPHILS # 6.7 10^3/uL (1.5-8.5); NEUTROPHILS % 70.6 % (36.0-66.0); PLATELET COUNT, AUTOMATED 249 10^3/uL (150-450); RED BLOOD COUNT 3.27 10^6/uL (4.00-5.40); WHITE BLOOD COUNT 9.5 10^3/uL (4.0-10.0)
[2024-04-28 12:56] LABS: ERYTHROCYTE SEDIMENTATION RATE 36 mm/hr (0-30)
[2024-04-28 13:06] LABS: ALBUMIN 3.3 G/DL (3.2-5.2); ALKALINE PHOSPHATASE 79 U/L (35-104); ALT/SGPT 22 U/L (7.0-40); AST/SGOT 21 U/L (<34); BILIRUBIN,TOTAL 0.3 MG/DL (0.3-1.2); BLOOD UREA NITROGEN 60 MG/DL (9-23); C REACTIVE PROTEIN QUANTITATIV < 0.50 MG/DL (<1.0); CARBON DIOXIDE LEVEL 30 MMOL/L (20-31); CHLORIDE LEVEL 107 MMOL/L (98-107); CREATININE FOR GFR 1.62 MG/DL (0.55-1.30); GLOMERULAR FILTRATION RATE 32.4 (>32); GLUCOSE, FASTING 208 MG/DL (74-106); POTASSIUM SERUM 4.3 MMOL/L (3.5-5.1); SODIUM LEVEL 144 MMOL/L (136-145); TOTAL PROTEIN 6.7 G/DL (5.7-8.2)
== END ==
LOC: M LAB 11:57
PROVIDERS: ATTEND Internal Medicine Rheumatology
DX: M05.79 Rheumatoid arthritis with rheumatoid factor of multiple sites without organ or systems involvement (principal); M15.9 Polyosteoarthritis, unspecified; Z79.899 Other long term (current) drug therapy

== ENCOUNTER → 2024-05-13 | Outpatient (CLI) | payer MEDICARE, OTHER ==
[~2024-05-13] MED LIST changes: -FAMO10TA50 PO; -FERR325T19; -LEVE750T5; -MECL-86 PO
[2024-05-13 15:43] LABS: BASO # 0.1 10^3/uL (0.0-0.2); BASO % 0.7 % (0.0-1.0); EOS # 0.6 10^3/uL (0.0-0.5); EOS % 6.9 % (0.0-3.0); HEMATOCRIT 31.7 % (36.0-47.0); HEMOGLOBIN 9.9 g/dl (12.0-15.5); LYMPH # 1.3 10^3/uL (1.5-5.0); LYMPH % 14.9 % (24.0-44.0); MEAN CORPUSCULAR HEMOGLOBIN 29.6 pg (27.0-33.0); MEAN CORPUSCULAR HGB CONC 31.2 g/dl (32.0-36.5); MEAN CORPUSCULAR VOLUME 94.6 fl (80.0-96.0); MONO # 0.7 10^3/uL (0.0-0.8); NEUTROPHILS # 5.9 10^3/uL (1.5-8.5); NEUTROPHILS % 69.2 % (36.0-66.0); PLATELET COUNT, AUTOMATED 261 10^3/uL (150-450); RED BLOOD COUNT 3.35 10^6/uL (4.00-5.40); WHITE BLOOD COUNT 8.6 10^3/uL (4.0-10.0)
[2024-05-13 16:40] LABS: PERCENT SATURATION 18.2 % (13.2-45.0)
== END ==
LOC: M PLALAB 13:32
PROVIDERS: ATTEND Internal Medicine Hematology
DX: D50.0 Iron deficiency anemia secondary to blood loss (chronic) (principal)

== ENCOUNTER → 2024-05-13 | Outpatient (CLI) | payer MEDICARE, OTHER | LOC: M PLAIMG 13:35 | PROVIDERS: ATTEND Internal Medicine Rheumatology | DX: M05.79 Rheumatoid arthritis with rheumatoid factor of multiple sites without organ or systems involvement (principal); Z79.899 Other long term (current) drug therapy; M19.071 Primary osteoarthritis, right ankle and foot; M19.072 Primary osteoarthritis, left ankle and foot; M19.041 Primary osteoarthritis, right hand; M19.042 Primary osteoarthritis, left hand ==

== ENCOUNTER 2024-10-29 05:36 | Emergency (ER) | payer MEDICARE, OTHER ==
[~2024-10-29] VITALS: Ht 165.1 cm; Wt 91.0 kg
[~2024-10-29 05:36] MED LIST changes: +FAMO10TA50 PO; +FERR325T19; +LEVE750T5; +MECL-86 PO
[2024-10-29] MEDS ORDERED: CLOP75TA2 (05:46)
[2024-10-29 07:07] LABS: BASO # 0.0 10^3/uL (0.0-0.2); BASO % 0.2 % (0.0-1.0); EOS # 0.0 10^3/uL (0.0-0.5); EOS % 0.3 % (0.0-3.0); LYMPH # 0.3 10^3/uL (1.5-5.0); LYMPH % 2.0 % (24.0-44.0); MONO # 0.2 10^3/uL (0.0-0.8); MONO % 0.9 % (2.0-8.0); NEUTROPHILS # 15.3 10^3/uL (1.5-8.5); NEUTROPHILS % 96.0 % (36.0-66.0); PLATELET COUNT, AUTOMATED 231 10^3/uL (150-450)
[2024-10-29] MEDS: ACETAMINOPHEN *IV* 1,000 MG in IV 1 EA IV ONE (07:33)
[2024-10-29] MEDS: ONDANSETRON 4MG 2ML VIAL IV ONE (07:33)
[2024-10-29 07:35] LABS: CK-MB VALUE MASS 1.4 NG/ML (<3.6)
[2024-10-29 07:37] LABS: ALT/SGPT 25.0 U/L (7.0-40); AST/SGOT 29.0 U/L (<34); CALCIUM LEVEL 9.6 MG/DL (8.3-10.6); CARBON DIOXIDE LEVEL 23.0 MMOL/L (20-31); CHLORIDE LEVEL 106.0 MMOL/L (98-107); CREATININE FOR GFR 1.22 MG/DL (0.55-1.30); GLOMERULAR FILTRATION RATE 44.3 (>32); POTASSIUM SERUM 4.7 MMOL/L (3.5-5.1); SODIUM LEVEL 144.0 MMOL/L (136-145)
[2024-10-29 07:51] LABS: CPK CREATINE PHOSPHOKINASE 68.0 U/L (34-145); MB/CK RELATIVE INDEX 2.05 (< OR =4)
[2024-10-29 08:02] LABS: KETONE, URINE AUTO RFX NEGATIVE (NEGATIVE); LEUKOCYTE ESTERASE UR AUTO RFX 2+ (NEGATIVE); MUCUS, URINE RFX SMALL (NEGATIVE); NITRITE, URINE AUTO RFX NEGATIVE (NEGATIVE); RBC, URINE AUTO RFX 5 /HPF (0-3); SQUAM EPITHELIAL CELL UR AURFX 0 /HPF (0-6); WBC, URINE AUTO RFX 155 /HPF (0-3)
[2024-10-29 08:37] LABS: CK-MB VALUE MASS < 1.0 NG/ML (<3.6); CPK CREATINE PHOSPHOKINASE 47 U/L (34-145)
[2024-10-29] MEDS ORDERED: LEVO1TAB40 PO (09:53)
[2024-10-29 10:06] VITALS: BP 182/77; TEMP 99.2; O2SAT 98
[2024-10-31] MEDS ORDERED: FOSF3PAC2 PO (09:08)
== END 2024-10-29 10:10 | disposition home or self-care (01) ==
LOC: M ED 05:36 → EEVIPCON 05:36 → M ED 10:10
DX: N39.0 Urinary tract infection, site not specified (principal); E11.9 Type 2 diabetes mellitus without complications; I10 Essential (primary) hypertension; M79.7 Fibromyalgia; Z86.73 Personal history of transient ischemic attack (TIA), and cerebral infarction without residual deficits; Z79.4 Long term (current) use of insulin; Z79.899 Other long term (current) drug therapy; Z88.8 Allergy status to other drugs, medicaments and biological substances
CPT/HCPCS: 71045; 80048; 80076; 81001; 82550; 82553; 83690; 84484; 85025; 87088; 87186; 93005; 93041; 94760; 96365; 96375; 99285; J0131; J2405

== ENCOUNTER 2024-11-19 20:54 | Emergency (ER) | payer MEDICARE, OTHER ==
[~2024-11-19] VITALS: Ht 165.1 cm; Wt 92.3 kg
[~2024-11-19 20:54] MED LIST changes: +CLOP75TA2; +FOSF3PAC2 PO; +LEVO1TAB40 PO
[2024-11-20] MEDS: MORPHINE 4 MG/ML 1 ML VIAL IV ONE ×2 (00:03→05:18)
[2024-11-20] MEDS: ONDANSETRON 4MG 2ML VIAL IV ONE (00:04)
[2024-11-20] MEDS: LIDOCAINE 2% MDV 20 ML VIAL SC ONE (01:53)
[2024-11-20] MEDS: TETANUS/DIPHTH/ACEL. PERTUSSIS 0.5 ML SYR IM.IMMUN ONE (01:55)
[2024-11-20 02:05] LABS: APPEARANCE, URINE CLEAR (CLEAR); BACTERIA, URINE AUTO NEGATIVE (NEGATIVE); BILIRUBIN, URINE AUTO NEGATIVE (NEGATIVE); BLOOD, URINE BLOOD NEGATIVE (NEGATIVE); GLUCOSE, URINE (UA) AUTO 2+ mg/dL (NEGATIVE); KETONE, URINE AUTO NEGATIVE (NEGATIVE); LEUKOCYTE ESTERASE, URINE AUTO NEGATIVE (NEGATIVE); NITRITE, URINE AUTO NEGATIVE (NEGATIVE); PROTEIN, URINE AUTO NEGATIVE (NEGATIVE); RBC, URINE AUTO 1 /HPF (0-3); SPECIFIC GRAVITY URINE AUTO 1.011 (1.002-1.035); SQUAMOUS EPITHELIAL CELL UR AU 1 /HPF (0-6); UROBILINOGEN, URINE AUTO 0.2 mg/dL (0.0-2.0); WBC, URINE AUTO 0 /HPF (0-3)
[2024-11-20 02:07] LABS: BASO # 0.1 10^3/uL (0.0-0.2); BASO % 0.4 % (0.0-1.0); EOS # 0.2 10^3/uL (0.0-0.5); EOS % 1.3 % (0.0-3.0); LYMPH # 1.3 10^3/uL (1.5-5.0); LYMPH % 7.0 % (24.0-44.0); MONO # 1.0 10^3/uL (0.0-0.8); MONO % 5.5 % (2.0-8.0); NEUTROPHILS # 16.1 10^3/uL (1.5-8.5); NEUTROPHILS % 85.3 % (36.0-66.0); PLATELET COUNT, AUTOMATED 304 10^3/uL (150-450)
[2024-11-20 02:36] LABS: ALT/SGPT 22.0 U/L (7.0-40); AST/SGOT 33.0 U/L (<34); CALCIUM LEVEL 9.8 MG/DL (8.3-10.6); CARBON DIOXIDE LEVEL 18.0 MMOL/L (20-31); CHLORIDE LEVEL 107.0 MMOL/L (98-107); CREATININE FOR GFR 1.35 MG/DL (0.55-1.30); GLOMERULAR FILTRATION RATE 39.2 (>32); POTASSIUM SERUM 5.1 MMOL/L (3.5-5.1); SODIUM LEVEL 142.0 MMOL/L (136-145)
[2024-11-20 02:38] LABS: CPK CREATINE PHOSPHOKINASE 116.0 U/L (34-145)
[2024-11-20] MEDS: NEOSPORIN OINT 0.9 GM PKT TOP ONE (02:45)
[2024-11-20] MEDS: LABETALOL 100 MG/20 ML VIAL IV STA (03:26)
[2024-11-20] MEDS ORDERED: DEXTROSE 50% 50 ML SYRINGE IV PRN (05:05)
[2024-11-20] MEDS ORDERED: GLUCOSE 4 GM CHEW PO PRN (05:05)
[2024-11-20] MEDS ORDERED: GLUCAGON INJ 1 MG VIAL SC PRN (05:05)
[2024-11-20] MEDS: HYDROXYCHLOROQUINE 200 MG TAB PO STA (05:07)
[2024-11-20 05:53] VITALS: BP 196/74
[2024-11-20] MEDS: LOSARTAN 50 MG TABLET PO ONE (05:53)
[2024-11-20] MEDS ORDERED: OXYC-517 PO (06:31)
[2024-11-20] MEDS: INSULIN LISPRO (NovoLOG) PER UNIT SC SCH (08:22)
[2024-11-20 09:46] VITALS: TEMP 98.6; O2SAT 97
[2024-11-20 10:49] VITALS: BP 162/64
[2024-11-20] MEDS ORDERED: INSULIN LISPRO (NovoLOG) PER UNIT SC SCH (21:00)
== END 2024-11-20 11:22 | disposition home or self-care (01) ==
LOC: M ED 20:54 → EDBEDREQSVC 11-20 00:54 → M ED 11-20 11:22
DX: S01.01XA Laceration without foreign body of scalp, initial encounter (principal); S62.644A Nondisplaced fracture of proximal phalanx of right ring finger, initial encounter for closed fracture; S62.646A Nondisplaced fracture of proximal phalanx of right little finger, initial encounter for closed fracture; M17.11 Unilateral primary osteoarthritis, right knee; S12.001A Unspecified nondisplaced fracture of first cervical vertebra, initial encounter for closed fracture; M77.32 Calcaneal spur, left foot; M48.02 Spinal stenosis, cervical region; G31.9 Degenerative disease of nervous system, unspecified; W19.XXXA Unspecified fall, initial encounter; Y92.009 Unspecified place in unspecified non-institutional (private) residence as the place of occurrence of the external cause; Y93.89 Activity, other specified; Y99.9 Unspecified external cause status; E11.40 Type 2 diabetes mellitus with diabetic neuropathy, unspecified; I10 Essential (primary) hypertension; E78.5 Hyperlipidemia, unspecified; I25.10 Atherosclerotic heart disease of native coronary artery without angina pectoris; M06.9 Rheumatoid arthritis, unspecified; N18.30 Chronic kidney disease, stage 3 unspecified; D64.9 Anemia, unspecified; Z79.4 Long term (current) use of insulin; Z79.899 Other long term (current) drug therapy; Z88.8 Allergy status to other drugs, medicaments and biological substances
CPT/HCPCS: 70450; 70486; 72040; 72125; 72141; 73130; 73564; 73610; 80053; 81001; 82550; 85025; 90471; 90715; 96372; 96374; 96375; 99285; J1815; J1920; J2405

== ENCOUNTER → 2025-01-06 | Outpatient (CLI) | payer MEDICARE, OTHER ==
[~2025-01-06] MED LIST changes: +OXYC-517 PO
== END ==
LOC: M RAD 13:14
PROVIDERS: ATTEND Physician Assistant
DX: M47.812 Spondylosis without myelopathy or radiculopathy, cervical region (principal); M25.78 Osteophyte, vertebrae

== ENCOUNTER → 2025-02-16 | Outpatient (REF) | payer MEDICARE, OTHER ==
[2025-02-16 11:24] LABS: BASO # 0.1 10^3/uL (0.0-0.2); BASO % 0.7 % (0.0-1.0); EOS # 0.3 10^3/uL (0.0-0.5); EOS % 4.0 % (0.0-3.0); LYMPH # 1.1 10^3/uL (1.5-5.0); LYMPH % 15.1 % (24.0-44.0); MONO # 0.5 10^3/uL (0.0-0.8); MONO % 7.0 % (2.0-8.0); NEUTROPHILS # 5.1 10^3/uL (1.5-8.5); NEUTROPHILS % 72.8 % (36.0-66.0); PLATELET COUNT, AUTOMATED 246 10^3/uL (150-450)
[2025-02-16 11:56] LABS: C REACTIVE PROTEIN QUANTITATIV < 0.50 MG/DL (<1.0)
[2025-02-16 11:58] LABS: ALT/SGPT 17 U/L (7.0-40); AST/SGOT 18 U/L (<34); CALCIUM LEVEL 8.6 MG/DL (8.3-10.6); CARBON DIOXIDE LEVEL 26 MMOL/L (20-31); CHLORIDE LEVEL 109 MMOL/L (98-107); CREATININE FOR GFR 1.13 MG/DL (0.55-1.30); GLOMERULAR FILTRATION RATE 48.3 (>32); POTASSIUM SERUM 4.7 MMOL/L (3.5-5.1); SODIUM LEVEL 144 MMOL/L (136-145)
== END ==
LOC: M LAB REF 11:05
PROVIDERS: ATTEND Internal Medicine Rheumatology
DX: M05.79 Rheumatoid arthritis with rheumatoid factor of multiple sites without organ or systems involvement (principal); Z79.899 Other long term (current) drug therapy